=== PATIENT | female | born 1990 | race African-American/Black ===

== ENCOUNTER 2020-12-15 15:06 | Emergency (ER) | payer MEDICAID ==
[~2020-12-15] VITALS: Ht 162.6 cm; Wt 85.0 kg
[2020-12-15 15:08] VITALS: BP 121/57
[2020-12-15] MEDS ORDERED: KETOROLAC 30MG/ML VIAL IM ONE (16:45)
[2020-12-15] MEDS ORDERED: IBUPROFEN 600MG TABLET PO ONE (17:15)
[2020-12-15] MEDS ORDERED: OXYC-100 MT ×2 (18:21→18:22)
== END 2020-12-15 18:40 | disposition home or self-care (01) ==
LOC: ER 15:06
DX: G89.29 Other chronic pain (principal); M54.5 Low back pain; Z88.1 Allergy status to other antibiotic agents
CPT/HCPCS: 72131; 72192; 81025; 99285